=== PATIENT | female | born 1945 | race Caucasian/White ===

== ENCOUNTER 2021-02-12 12:27 | Inpatient (IN) | payer MEDICARE, OTHER ==
[2021-02-12] MEDS ORDERED: TYLENOL EXTRA STRENGTH 500 MG PO PRN (13:26)
--- NOTE | 2021-02-12 14:11 | ERPHSYRPT ---
- History of Present Illness Time Seen by Provider: 02/12/21 12:35 Source: patient Exam Limitations: no limitations Patient Subjective Stated Complaint: Fall Triage Nursing Assessment: .... Physician History: 75 years old female presented in the ER with chief complaint of right knee/leg/ankle pain after she lost her balance while taking care of her 3 days ago and twisted, was having difficulty getting up until EMS helped her get up. Her is COVID-19 positive. Patient noticed she is having increased difficulty ambulation and using cane but prior to arrival her right knee/leg gave away while she was walking. Did not hit her head, no loss of consciousness. Patient is also having a fever of 100.6 with minimal nonproductive cough and denies any shortness of breath although her oxygen saturation is around 89/90% on room air. Denies any chest pain, abdominal pain, nausea or vomiting but does feel weak fatigued and tired. Occurred: days ago (3) Reason for Fall: lost balance Injuries/Pain Location: lower extremity Loss of Consciousness: no loss of consciousness Quality: sharpness Severity of Pain-Max: moderate Severity of Pain-Current: moderate Modifying Factors: Improves With: immobilization. Worsens With: movement Associated Symptoms (Fall): extremity injury, trouble walking, No shortness of breath Allergies/Adverse Reactions: No Known Drug Allergies Allergy (Unverified 02/12/21 12:43) Home Medications: Diclofenac Sodium Gel [Voltaren GEL] 100 gm TP DAILY PRN 02/12/21 [History] NIFEdipine [Nifedipine ER] 60 mg PO DAILY 02/12/21 [History] Hx Influenza Vaccination/Date Given: No Hx Pneumococcal Vaccination/Date Given: No Immunizations Up to Date: Yes Travel Risk - International Travel Have you traveled outside of the country in past 3 weeks: No - Coronavirus Screening Are you exhibiting any of the following symptoms?: Yes Symptoms: Fever, Cough: New Onset Close contact with a COVID-19 positive Pt in past 14-21 Days: Yes - Vaccine Status Have you recieved a Covid-19 vaccination: No - Review of Systems Constitutional: Fatigue, Weakness Eyes: No Symptoms Ears, Nose, & Throat: No Symptoms Respiratory: Cough, Dyspnea Cardiac: No Symptoms Abdominal/Gastrointestinal: No Symptoms Genitourinary Symptoms: No Symptoms Musculoskeletal: Fall, Injury, Joint Pain, Myalgias Skin: No Symptoms Neurological: No Symptoms Psychological: No Symptoms Endocrine: No Symptoms Hematologic/Lymphatic: No Symptoms Immunological/Allergic: No Symptoms - Past Medical History Pertinent Past Medical History: Yes Neurological History: No Pertinent History ENT History: No Pertinent History Cardiac History: Hypertension Respiratory History: No Pertinent History Endocrine Medical History: No Pertinent History Musculoskeletal History: No Pertinent History GI Medical History: No Pertinent History History: No Pertinent History Psycho-Social History: No Pertinent History Female Reproductive Disorders: No Pertinent History - Past Surgical History Past Surgical History: Yes Neuro Surgical History: No Pertinent History Cardiac: No Pertinent History Respiratory: No Pertinent History Gastrointestinal: No Pertinent History Genitourinary: No Pertinent History Musculoskeletal: Orthopedic Surgery Female Surgical History: Mastectomy Other Surgical History: right wrist surgery 4 years ago. breast cancer right breast - Social History Smoking Status: Never smoker Exposure to second hand smoke: No Drug Use: none Patient Lives Alone: Yes - Female History Hx Now: No - Nursing Vital Signs Nursing Vital Signs: Initial Vital Signs Temperature 100.6 F 02/12/21 12:44 Pulse Rate 88 02/12/21 12:44 Respiratory Rate 18 02/12/21 12:44 Blood Pressure 155/55 02/12/21 12:44 O2 Sat by Pulse Oximetry 93 L 02/12/21 12:44 Pain Scale Pain Intensity 5 - Physical Exam General Appearance: no apparent distress, alert Head Injury: no evidence of injury Eye Exam: PERRL/EOMI, eyes nml inspection ENT Exam: airway nml, No evidence of ENT injury Neck Exam: supple, trachea midline, full range of motion, normal alignment, normal inspection Respiratory/Chest Exam: decreased breath sounds, rhonchi, No respiratory distress Cardiovascular Exam: normal heart sounds, regular rate/rhythm Gastrointestinal Exam: soft, normal bowel sounds, No tenderness Extremity Exam: contusions (Right lateral leg from knee to ankle with abrasion, swelling and minimal tenderness.) Neurologic Exam: alert, oriented x 3, cooperative, 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 nml as tested Skin Exam: normal color SpO2 Interpretation: normal SpO2: 93 O2 Delivery: Room Air Ordered Tests: Active Orders 24 hr Category Date Time Status Bedrest ROUTINE Activity 02/12/21 17:54 Active Up With Assistance ROUTINE Activity 02/12/21 17:54 Active Code Status Order ROUTINE Care 02/12/21 17:54 Active Fall Protocol Q1H Care 02/12/21 17:54 Active IV Care Q6H Care 02/12/21 17:54 Active Neuro Checks Q4H Care 02/12/21 17:[address] in Observation ROUTINE Care 02/12/21 17:54 Active [place] ROUTINE Care 02/12/21 17:54 Active Weight,Daily 0600 Care 02/12/21 17:54 Active ANKLE (3 VIEWS) Stat Exams 02/12/21 Completed CHEST 2 VIEWS (PA AND LAT) Stat Exams 02/12/21 Completed KNEE (3 VIEWS) Stat Exams 02/12/21 Completed BLOOD CULTURE Stat Lab 02/12/21 13:50 Received CBC W DIFF AM.LAB Lab 02/13/21 04:00 Ordered CBC W DIFF Stat Lab 02/12/21 14:10 Completed CMP AM.LAB Lab 02/13/21 04:00 Ordered CMP Stat Lab 02/12/21 14:10 Completed UA W/RFX UR CULTURE Stat Lab 02/12/21 13:23 Ordered Oxygen Nasal Cannula 3 lpm RT 02/12/21 17:54 Active Transfer Order Routine Transfer 02/12/21 Completed Medication Summary Generic Name Dose Route Start Last Admin Trade Name Freq PRN Reason Stop Dose Admin Acetaminophen 650 mg 02/12/21 17:54 Acetaminophen 325 Mg Tablet PO 03/14/21 17:53 Q4H PRN PRN PAIN AND/OR FEVER Dexamethasone Sodium Phosphate 6 mg 02/13/21 10:00 Dexamethasone Sod Phosphate 10 Mg/Ml IV 03/15/21 09:59 DAILY RENEE Remdesivir 100 mg/ Sodium 100 mls @ 100 mls/hr 02/13/21 16:41 Chloride IV 02/16/21 17:40 Q24H RENEE Ondansetron HCl 4 mg 02/12/21 18:13 Ondansetron Hcl 4 Mg/2 Ml Vial IV 03/14/21 18:12 Q6H PRN PRN NAUSEA/VOMITING Pantoprazole Sodium 40 mg 02/13/21 10:00 Pantoprazole 40 Mg Vial IV 03/15/21 09:59 Q24H10 RENEE Discontinued Medications Generic Name Dose Route Start Last Admin Trade Name Freq PRN Reason Stop Dose Admin Acetaminophen 1,000 mg 02/12/21 13:26 02/12/21 15:11 Acetaminophen 500 Mg Tablet PO 03/14/21 13:25 1,000 mg Q4H PRN PRN Administration HEADACHE Acetaminophen Confirm 02/12/21 15:08 Acetaminophen 500 Mg Tablet Administered 02/12/21 15:09 Dose 1,000 mg .ROUTE .STK-MED ONE Dexamethasone Sodium Phosphate 6 mg 02/12/21 15:01 02/12/21 15:13 Dexamethasone Sod Phosphate 10 Mg/Ml IV 02/12/21 15:02 6 mg STAT ONE Administration Dexamethasone Sodium Phosphate Confirm 02/12/21 15:08 Dexamethasone Sod Phosphate 10 Mg/Ml Administered 02/12/21 15:09 Dose 10 mg .ROUTE .STK-MED ONE Azithromycin 500 mg in 250 mls @ 250 mls/hr 02/12/21 15:00 02/12/21 15:54 Zithromax 500 Mg/ 250 Ml Nacl Premix IV 02/12/21 15:59 250 ml/hr STAT STA 250 mls/hr Administration Ceftriaxone Sodium/Dextrose 2 g in 50 mls @ 100 mls/hr 02/12/21 15:00 02/12/21 16:43 Rocephin 2 Gm-D5w 50ml Bag IV 02/12/21 15:29 Infused STAT STA Infusion Ceftriaxone Sodium/Dextrose Confirm 02/12/21 15:08 Rocephin 2 Gm-D5w 50ml Bag Administered 02/12/21 15:09 Dose 2 g in 50 mls @ ud IV .STK-MED ONE Azithromycin Confirm 02/12/21 15:51 Zithromax 500 Mg/ 250 Ml Nacl Premix Administered 02/12/21 15:52 Dose 500 mg in 250 mls @ ud IV .STK-MED ONE Remdesivir 200 mg/ Sodium 250 mls @ 125 mls/hr 02/12/21 16:37 Chloride IV 02/12/21 18:36 ONCE ONE Ceftriaxone Sodium/Dextrose 1 g in 50 mls @ 100 mls/hr 02/13/21 10:00 Rocephin 1 Gm-D5w 50 Ml Bag IV 02/16/21 09:59 Q24H10 RENEE Azithromycin 500 mg in 250 mls @ 250 mls/hr 02/13/21 10:00 Zithromax 500 Mg/ 250 Ml Nacl Premix IV 03/15/21 09:59 Q24H10 [facility] Lab/Rad Data: Laboratory Result Diagrams 02/12/21 14:10 02/12/21 14:10 Laboratory Results 02/12/21 02/12/21 02/12/21 Range/Units 15:40 14:10 14:10 WBC 2.8 L (4.0-10.5) K/mm3 RBC 4.85 (4.1-5.4) M/mm3 Hgb 14.1 (12.0-16.0) gm/dl Hct 44.0 (35-47) % MCV 90.7 (78-100) fl MCH 29.1 (26-32) pg MCHC 32.0 (32-36) g/dl RDW 13.4 (11.5-14.0) % Plt Count 120 L (150-450) K/mm3 MPV 10.7 (7.5-11.0) fl Gran % 84.1 H (36.0-66.0) % Eos # (Auto) 0 (0-0.5) Absolute Lymphs (auto) 0.30 L (1.0-4.6) Absolute Monos (auto) 0.15 (0.0-1.3) Lymphocytes % 10.6 L (24.0-44.0) % Monocytes % 5.3 (0.0-12.0) % Eosinophils % 0.0 (0.00-5.0) % Basophils % 0.0 (0.0-0.4) % Absolute Granulocytes 2.39 (1.4-6.9) Basophils # 0 (0-0.4) Sodium 128 L (137-145) mmol/L Potassium 3.7 (3.5-5.1) mmol/L Chloride 94 L (98-107) mmol/L Carbon Dioxide 27 (22-30) mmol/L Anion Gap 10.9 (5-15) MEQ/L BUN 10 (7-17) mg/dL Creatinine 0.86 (0.52-1.04) mg/dL Estimated GFR > 60.0 ML/MIN Glucose 111 H (74-106) mg/dL Calcium 8.2 L (8.4-10.2) mg/dL Total Bilirubin 0.50 (0.2-1.3) mg/dL AST 78 H (14-36) U/L ALT 38 H (0-35) U/L Alkaline Phosphatase 68 (38-126) U/L Serum Total Protein 6.8 (6.3-8.2) g/dL Albumin 4.0 (3.5-5.0) g/dL Influenza Type A Ag NEGATIVE (NEGATIVE) Influenza Type B Ag NEGATIVE (NEGATIVE) RSV (PCR) NEGATIVE (Negative) SARS-CoV-2 (PCR) POSITIVE A (NEGATIVE) Slides for Path Review YES - Progress Progress: improved, re-examined Progress Note: 02/12/21 16:41 Patient is evaluated for fall. Patient was found to have a temperature of 100.6 and was getting hypoxic around 88% on room air, placed on supplemental oxygen and is around 92%. X-rays negative for any fracture dislocation. Given Tylenol for fever. CBC consistent with Covid and chest x-ray showed bilateral airspace disease, given a dose of antibiotic remdesivir and Decadron. Discussed with Dr. Pena as patient Covid test is positive and patient is accepted for admission. Will see patient in: hospital (observation) Counseled pt/family regarding: lab results, diagnosis, need for follow-up, rad results - Departure Departure Disposition: Observation Clinical Impression: Pneumonia due to COVID-19 virus, Contusion of leg, Fall Respiratory failure Qualifiers: Chronicity: acute Respiratory failure complication: hypoxia Qualified Code(s): J96.01 - Acute respiratory failure with hypoxia Condition: Stable Critical Care Time: No
--- NOTE | 2021-02-12 14:16 | XRAY ---
Indication: Pain following fall. Comparison: None 3 view right knee demonstrates osteopenia and mild tricompartmental degenerative changes. No other bony, articular, or soft tissue abnormalities.
--- NOTE | 2021-02-12 14:16 | XRAY ---
Indication: Fever and cough. Comparison: None PA/lateral chest demonstrates COPD and minimal bibasilar interstitial alveolar opacities left greater than right. Heart not enlarged. Bony thorax intact with mild osteopenia and degenerative changes.
--- NOTE | 2021-02-12 14:16 | XRAY ---
Indication: Pain following fall. Comparison: None 3 view right ankle demonstrates osteopenia and small cuboid accessory ossicle. No other bony, articular, or soft tissue abnormalities.
[2021-02-12 14:24] LABS: Absolute Neutrophil Ct (ANC) 2.39 (1.4-6.9); Basophil (Absolute #) 0 (0-0.4); Eosinophil (Absolute #) 0 (0-0.5); Hemoglobin 14.1 gm/dl (12.0-16.0); Lymphocytes % 10.6 % (24.0-44.0); Mean Cell Volume 90.7 fl (78-100); Mean Corpuscular Hemoglobin 29.1 pg (26-32); Mean Platelet Volume 10.7 fl (7.5-11.0); Monocyte (Absolute #) 0.15 (0.0-1.3); Monocytes % 5.3 % (0.0-12.0); Neutrophil % 84.1 % (36.0-66.0); Platelet Count 120 K/mm3 (150-450); Red Blood Count 4.85 M/mm3 (4.1-5.4); Red Cell Distribution Width 13.4 % (11.5-14.0); White Blood Count 2.8 K/mm3 (4.0-10.5)
[2021-02-12 14:36] LABS: ALKALINE PHOSPHATASE 68 U/L (38-126); ANION GAP 10.9 MEQ/L (5-15); BLOOD UREA NITROGEN 10 mg/dL (7-17); CHLORIDE 94 mmol/L (98-107); Calcium 8.2 mg/dL (8.4-10.2); Carbon Dioxide 27 mmol/L (22-30); Creatinine 1 0.86 mg/dL (0.52-1.04); EST GLOMERULAR FILTRATION RATE > 60.0 ML/MIN; Glucose 111 mg/dL (74-106); Potassium 3.7 mmol/L (3.5-5.1); SGOT/AST 78 U/L (14-36); SGPT/ALT 38 U/L (0-35); SODIUM 128 mmol/L (137-145); Total Protein 6.8 g/dL (6.3-8.2)
[2021-02-12] MEDS ORDERED: ROCEPHIN 2 Gm-D5w 50ML BAG** 2 G/50 ML IVPB IV STA (15:00)
[2021-02-12] MEDS ORDERED: Zithromax 500 MG/ 250 ML NaCl Premix 500 MG/250 ML IVPB IV STA (15:00)
[2021-02-12] MEDS ORDERED: DECADRON 10MG INJ. IV ONE (15:01)
[2021-02-12] MEDS ORDERED: ROCEPHIN 2 Gm-D5w 50ML BAG** 2 G/50 ML IVPB IV ONE (15:08)
[2021-02-12] MEDS ORDERED: DECADRON 10MG INJ. ONE (15:08)
[2021-02-12] MEDS ORDERED: TYLENOL EXTRA STRENGTH 500 MG ONE (15:08)
[2021-02-12 15:50] LABS: Slide Review 1 YES
[2021-02-12] MEDS ORDERED: Zithromax 500 MG/ 250 ML NaCl Premix 500 MG/250 ML IVPB IV ONE (15:51)
[2021-02-12 16:31] LABS: INFLUENZA A NEGATIVE (NEGATIVE); INFLUENZA B NEGATIVE (NEGATIVE); RESPIRATORY SYNCTIAL VIRUS NEGATIVE (Negative)
[2021-02-12] MEDS ORDERED: REMDESIVIR 200 MG in Sodium Chloride 0.9% 250 ML 250 ML IV ONE (16:37)
[2021-02-12 16:43] LABS: SARS-CoV-2 Xpert Express POSITIVE (NEGATIVE)
[2021-02-12] MEDS ORDERED: Zofran 4 MG/2 ML VIAL IV PRN (18:13)
[2021-02-12] MEDS ORDERED: REMDESIVIR IV ONE (20:21)
[2021-02-12] MEDS ORDERED: Sodium Chloride 0.9% 250 ML 250 ML IV ONE (20:21)
[2021-02-12] MEDS ORDERED: Lomotil PO PRN (20:35)
[2021-02-12] MEDS ORDERED: Colace 100 MG PO PRN (20:37)
[2021-02-12 21:05] LABS: Appearance CLEAR (CLEAR); Bilirubin NEGATIVE (NEGATIVE); Blood NEGATIVE Ery/ul (0-5); Glucose NEGATIVE (NEGATIVE); Hyaline Casts 0-2 /LPF (0-2); Ketones SMALL (NEGATIVE); Leukocyte Esterase NEGATIVE (NEGATIVE); Mucus SLIGHT /HPF (NEGATIVE); Nitrite NEGATIVE (NEGATIVE); Protein,Urine Dip 30 (Negative); Urobilinogen NEGATIVE mg/dL (0-1); WBC 0-2 /HPF (0-5)
[2021-02-12] MEDS: ENOXAPARIN SODIUM SQ SCH (21:40)
[2021-02-12] MEDS ORDERED: Ativan 1 MG PO SCH (22:00)
[2021-02-12] MEDS ORDERED: Protonix 40MG Tablet PO SCH (22:00)
[2021-02-13 06:55] LABS: Absolute Neutrophil Ct (ANC) 1.76 (1.4-6.9); BASOPHIL % 0.4 % (0.0-0.4); Basophil (Absolute #) 0.01 (0-0.4); Eosinophil (Absolute #) 0 (0-0.5); Hematocrit 41.9 % (35-47); Hemoglobin 13.3 gm/dl (12.0-16.0); Lymphocyte (Absolute #) 0.55 (1.0-4.6); Lymphocytes % 21.5 % (24.0-44.0); Mean Cell Volume 90.5 fl (78-100); Mean Corpuscular Hemoglobin 28.7 pg (26-32); Mean Corpuscular Hgb Concent. 31.7 g/dl (32-36); Mean Platelet Volume 11.2 fl (7.5-11.0); Monocyte (Absolute #) 0.24 (0.0-1.3); Monocytes % 9.4 % (0.0-12.0); Neutrophil % 68.7 % (36.0-66.0); Platelet Count 136 K/mm3 (150-450); Red Blood Count 4.63 M/mm3 (4.1-5.4); Red Cell Distribution Width 13.3 % (11.5-14.0); White Blood Count 2.6 K/mm3 (4.0-10.5)
[2021-02-13] MEDS ORDERED: Ativan 1 MG PO PRN (07:30)
[2021-02-13] MEDS ORDERED: Sodium Chloride 0.9% 10 ML FLUSH Syringe IV PRN (07:30)
[2021-02-13] MEDS: TYLENOL 325 MG PO PRN (07:41)
[2021-02-13 07:55] LABS: ALBUMIN 3.3 g/dL (3.5-5.0); ALKALINE PHOSPHATASE 63 U/L (38-126); ANION GAP 10.4 MEQ/L (5-15); BLOOD UREA NITROGEN 12 mg/dL (7-17); CHLORIDE 98 mmol/L (98-107); Calcium 8.1 mg/dL (8.4-10.2); Carbon Dioxide 28 mmol/L (22-30); Creatinine 1 0.73 mg/dL (0.52-1.04); EST GLOMERULAR FILTRATION RATE > 60.0 ML/MIN; Glucose 98 mg/dL (74-106); Potassium 4.2 mmol/L (3.5-5.1); SGOT/AST 67 U/L (14-36); SGPT/ALT 35 U/L (0-35); SODIUM 132 mmol/L (137-145); Total Protein 5.6 g/dL (6.3-8.2)
[2021-02-13] MEDS ORDERED: Voltaren GEL TP PRN (08:13)
[2021-02-13] MEDS: Adalat CC 30 MG TABLET PO SCH (09:22)
[2021-02-13] MEDS: DECADRON 10MG INJ. IV SCH (09:23)
[2021-02-13] MEDS: Protonix 40MG Tablet PO SCH (09:23)
[2021-02-13] MEDS ORDERED: PROTONIX 40 MG IV IV SCH (10:00)
[2021-02-13] MEDS ORDERED: ROCEPHIN 1 Gm-D5w 50 ml Bag** 1 G/50 ML IVPB IV SCH (10:00)
[2021-02-13] MEDS ORDERED: NON-FORMULARY ITEM (Nifedipine [Nifedipine Er] 60 MG Tab.Er.24) PO SCH (10:00)
[2021-02-13] MEDS ORDERED: Zithromax 500 MG/ 250 ML NaCl Premix 500 MG/250 ML IVPB IV SCH (10:00)
--- NOTE | 2021-02-13 11:06 | HP ---
CHIEF COMPLAINT: Weakness, sore right ankle after twisting it and cough. HISTORY OF PRESENT ILLNESS: She is a 75-year-old white female who takes care of her who has trouble getting out of bed and needs a walker to walk. He slipped and she fell and hit her ankle against the bed. She was brought in for evaluation. It was noted she had a cough, temperature and was weak. COVID test was positive. She had been feeling bad for three days. He was actually already admitted, I think, possibly to a senior living. Anyway he is positive and being treated at [facility]. Neither one of them had vaccines. Neither one of the smoke and mostly homebound. She had a temperature of 100.6F in the emergency room. Denied any shortness of breath. Her O2 saturation was like 89%. The fall actually occurred two days ago and she was having problems walking and finally had gotten her into a facility. She had no loss of consciousness. The pain is pretty moderate. X-rays were negative. TRAVEL RISK: None. CORONAVIRUS SCREENING: Vaccinations: Basically none. MEDICATIONS: Voltaren gel to the knees, Nifedipine extended release 60 mg q.d., ALLERGIES: NKDA. PAST MEDICAL HISTORY: Arthritis of the knees. Mild hypotension. No heart attacks. No strokes. PAST SURGICAL HISTORY: She had a mastectomy many years ago. Right wrist surgery four years ago for fracture. REVIEW OF SYSTEMS: CONSTITUTIONAL: She is weak, tired, feels like she is feverish at times. HEENT: The patient is hard of hearing but she can hear normal conversation that is directed to her without interference. ABDOMEN: No nausea or vomiting. EXTREMITIES: Sore right ankle usually no problems. SOCIAL HISTORY: Nonsmoker. She is to a [employer] who served in [facility]. He has some dementia and as stated he is in a senior living now. PHYSICAL EXAMINATION: VITAL SIGNS: In the emergency room temperature 100.6F, pulse 88, respirations 18, blood pressure 155/55. O2 saturation pulse ox with 2 liters was 93%. Pain intensity is 5. GENERAL APPEARANCE: The patient is a fairly strong, mentally alert, 75-year-old white female. HEENT: Pupils equal and reactive to light. Decreased hearing. NECK: Supple without adenopathy. CHEST: Clear. CVS: No murmurs or gallops. ABDOMEN: Soft. No masses or organomegaly. EXTREMITIES: Right lower leg is swollen from the ankle to the knee with abrasion, minimal tenderness. LAB DATA AND TESTS: IMPRESSION: The patient has: 1) Early COVID pneumonia shown by chest x-ray and falling O2's and weakness. 2) She has a sprain right ankle. 3) Hypertension. 4) Loss of companionship recently. PLAN: The patient will be treated with the usual medicines including Remdesivir, Dexamethasone. She is on antibiotics that will be discontinued as she has no signs of any bacterial infection. Her white count is low 2.8 as expected. Her sodium is 128 slightly low once again from fluid overload probably from her COVID. She will be placed on oxygen and followed on a daily basis. PROGNOSIS: Good.
[2021-02-13] MEDS: Lomotil PO PRN (11:32)
[2021-02-13] MEDS: Sodium Chloride 0.9% 10 ML FLUSH Syringe IV SCH ×2 (14:36→22:08)
[2021-02-13] MEDS: REMDESIVIR 100 MG in Sodium Chloride 0.9% 100 ML BAG 100 ML IV SCH (17:40)
[2021-02-13] MEDS: ENOXAPARIN SODIUM SQ SCH (22:07)
[2021-02-14] MEDS: Protonix 40MG Tablet PO SCH (09:23)
[2021-02-14] MEDS: DECADRON 10MG INJ. IV SCH (09:23)
[2021-02-14] MEDS: Sodium Chloride 0.9% 10 ML FLUSH Syringe IV SCH ×3 (09:23→21:54)
[2021-02-14] MEDS: Adalat CC 30 MG TABLET PO SCH (09:23)
[2021-02-14] MEDS: Lomotil PO PRN (09:26)
[2021-02-14] MEDS: TYLENOL 325 MG PO PRN (12:19)
[2021-02-14] MEDS: REMDESIVIR 100 MG in Sodium Chloride 0.9% 100 ML BAG 100 ML IV SCH (17:16)
[2021-02-14] MEDS: ENOXAPARIN SODIUM SQ SCH (21:54)
[2021-02-15] MEDS: Sodium Chloride 0.9% 10 ML FLUSH Syringe IV SCH ×3 (06:13→21:43)
[2021-02-15 06:55] LABS: Hematocrit 43.6 % (35-47); Hemoglobin 13.9 gm/dl (12.0-16.0); Mean Cell Volume 90.5 fl (78-100); Mean Corpuscular Hemoglobin 28.8 pg (26-32); Mean Corpuscular Hgb Concent. 31.9 g/dl (32-36); Mean Platelet Volume 10.7 fl (7.5-11.0); Platelet Count 187 K/mm3 (150-450); Red Blood Count 4.82 M/mm3 (4.1-5.4); Red Cell Distribution Width 13.3 % (11.5-14.0); White Blood Count 4.7 K/mm3 (4.0-10.5)
[2021-02-15 07:05] LABS: ALBUMIN 3.5 g/dL (3.5-5.0); ALKALINE PHOSPHATASE 69 U/L (38-126); ANION GAP 11.6 MEQ/L (5-15); BLOOD UREA NITROGEN 19 mg/dL (7-17); CHLORIDE 99 mmol/L (98-107); Calcium 8.4 mg/dL (8.4-10.2); Carbon Dioxide 28 mmol/L (22-30); Creatinine 1 0.75 mg/dL (0.52-1.04); EST GLOMERULAR FILTRATION RATE > 60.0 ML/MIN; Glucose 105 mg/dL (74-106); Potassium 3.5 mmol/L (3.5-5.1); SGOT/AST 54 U/L (14-36); SGPT/ALT 33 U/L (0-35); SODIUM 135 mmol/L (137-145); Total Protein 6.1 g/dL (6.3-8.2)
[2021-02-15] MEDS: Protonix 40MG Tablet PO SCH (07:22)
[2021-02-15] MEDS: DECADRON 10MG INJ. IV SCH (07:22)
[2021-02-15] MEDS: Lomotil PO PRN (07:22)
[2021-02-15] MEDS: Adalat CC 30 MG TABLET PO SCH (07:23)
--- NOTE | 2021-02-15 07:59 | XRAY ---
Indication: Covid 19 pneumonia. Comparison: February 22, 2021. Portable chest again hyperinflated with worsening more diffuse bilateral interstitial alveolar opacities without consolidation/large effusion. Heart is now borderline enlarged.
[2021-02-15 09:15] LABS: Slide Review YES
[2021-02-15] MEDS ORDERED: VENTOLIN COMMON CANISTER IH PRN (14:51)
[2021-02-15] MEDS: REMDESIVIR 100 MG in Sodium Chloride 0.9% 100 ML BAG 100 ML IV SCH (16:07)
[2021-02-15] MEDS: TYLENOL 325 MG PO PRN (18:29)
[2021-02-15] MEDS: ENOXAPARIN SODIUM SQ SCH (21:36)
[2021-02-16] MEDS: Sodium Chloride 0.9% 10 ML FLUSH Syringe IV SCH ×4 (04:58→20:38)
[2021-02-16] MEDS: Protonix 40MG Tablet PO SCH (08:53)
[2021-02-16] MEDS: DECADRON 10MG INJ. IV SCH (08:53)
[2021-02-16] MEDS: Adalat CC 30 MG TABLET PO SCH (08:54)
[2021-02-16] MEDS ORDERED: Sodium Chloride 0.9% 1000 ML 1,000 ML ONE (11:42)
[2021-02-16] MEDS: Sodium Chloride 0.9% 1000 ML 1,000 ML IV SCH (11:46)
[2021-02-16 11:54] LABS: Hematocrit 40.9 % (35-47); Hemoglobin 13.2 gm/dl (12.0-16.0); Mean Cell Volume 90.1 fl (78-100); Mean Corpuscular Hemoglobin 29.1 pg (26-32); Mean Corpuscular Hgb Concent. 32.3 g/dl (32-36); Mean Platelet Volume 10.5 fl (7.5-11.0); Platelet Count 225 K/mm3 (150-450); Red Blood Count 4.54 M/mm3 (4.1-5.4); Red Cell Distribution Width 13.1 % (11.5-14.0)
[2021-02-16 12:11] LABS: BLOOD UREA NITROGEN 18 mg/dL (7-17); CHLORIDE 98 mmol/L (98-107); Calcium 8.1 mg/dL (8.4-10.2); Carbon Dioxide 29 mmol/L (22-30); Creatinine 1 0.69 mg/dL (0.52-1.04); EST GLOMERULAR FILTRATION RATE > 60.0 ML/MIN; Glucose 136 mg/dL (74-106); NT PRO BNP 267 pg/mL (0-1800); Potassium 3.2 mmol/L (3.5-5.1); SODIUM 133 mmol/L (137-145)
[2021-02-16] MEDS ORDERED: HYDROCODONE-CHLORPHEN ER SUSP PO PRN (13:02)
[2021-02-16] MEDS: VENTOLIN COMMON CANISTER IH SCH ×2 (14:12→21:25)
[2021-02-16] MEDS: OLUMIANT PO SCH (14:20)
[2021-02-16] MEDS: REMDESIVIR 100 MG in Sodium Chloride 0.9% 100 ML BAG 100 ML IV SCH (17:51)
--- NOTE | 2021-02-16 18:49 | XRAY ---
Indication: Covid 19 pneumonia. Comparison: One day earlier. Portable chest remains unchanged again hyperinflated with moderate diffuse bilateral patchy airspace disease. Heart remains borderline enlarged. No new cardiopulmonary abnormalities. Comment: Preliminary interpretation made by C. No critical discrepancy.
[2021-02-16] MEDS: ENOXAPARIN SODIUM SQ SCH (20:36)
[2021-02-17] MEDS: VENTOLIN COMMON CANISTER IH SCH ×5 (01:31→11:00)
[2021-02-17 06:25] LABS: Hematocrit 48.3 % (35-47); Hemoglobin 15.4 gm/dl (12.0-16.0); Mean Cell Volume 90.1 fl (78-100); Mean Corpuscular Hemoglobin 28.7 pg (26-32); Mean Corpuscular Hgb Concent. 31.9 g/dl (32-36); Mean Platelet Volume 10.1 fl (7.5-11.0); Platelet Count 302 K/mm3 (150-450); Red Blood Count 5.36 M/mm3 (4.1-5.4); Red Cell Distribution Width 13.3 % (11.5-14.0)
[2021-02-17 07:11] LABS: ALBUMIN 3.8 g/dL (3.5-5.0); ALKALINE PHOSPHATASE 78 U/L (38-126); ANION GAP 14.6 MEQ/L (5-15); BLOOD UREA NITROGEN 13 mg/dL (7-17); CHLORIDE 98 mmol/L (98-107); Calcium 8.5 mg/dL (8.4-10.2); Carbon Dioxide 28 mmol/L (22-30); Creatinine 1 0.63 mg/dL (0.52-1.04); EST GLOMERULAR FILTRATION RATE > 60.0 ML/MIN; Glucose 94 mg/dL (74-106); NT PRO BNP 390 pg/mL (0-1800); Potassium 3.5 mmol/L (3.5-5.1); SGOT/AST 62 U/L (14-36); SGPT/ALT 39 U/L (0-35); SODIUM 137 mmol/L (137-145); Total Protein 6.5 g/dL (6.3-8.2)
[2021-02-17] MEDS: Sodium Chloride 0.9% 10 ML FLUSH Syringe IV SCH ×3 (09:09→21:37)
[2021-02-17] MEDS: Protonix 40MG Tablet PO SCH (09:29)
[2021-02-17] MEDS: OLUMIANT PO SCH (09:29)
[2021-02-17] MEDS: DECADRON 10MG INJ. IV SCH (09:29)
[2021-02-17] MEDS: Adalat CC 30 MG TABLET PO SCH (09:29)
[2021-02-17] MEDS ORDERED: VENTOLIN COMMON CANISTER IH PRN (12:09)
[2021-02-17] MEDS: Sodium Chloride 0.9% 1000 ML 1,000 ML IV SCH (14:34)
[2021-02-17] MEDS: ENOXAPARIN SODIUM SQ SCH (21:22)
[2021-02-18] MEDS: Sodium Chloride 0.9% 10 ML FLUSH Syringe IV SCH ×2 (06:21→14:05)
[2021-02-18 09:07] LABS: Hematocrit 48.9 % (35-47); Hemoglobin 15.6 gm/dl (12.0-16.0); Mean Cell Volume 90.9 fl (78-100); Mean Corpuscular Hgb Concent. 31.9 g/dl (32-36); Mean Platelet Volume 10.8 fl (7.5-11.0); Platelet Count 328 K/mm3 (150-450); Red Blood Count 5.38 M/mm3 (4.1-5.4); Red Cell Distribution Width 13.5 % (11.5-14.0); White Blood Count 13.7 K/mm3 (4.0-10.5)
[2021-02-18 10:17] LABS: ALBUMIN 3.8 g/dL (3.5-5.0); ALKALINE PHOSPHATASE 76 U/L (38-126); ANION GAP 14.6 MEQ/L (5-15); BLOOD UREA NITROGEN 18 mg/dL (7-17); CHLORIDE 100 mmol/L (98-107); Calcium 8.9 mg/dL (8.4-10.2); Carbon Dioxide 27 mmol/L (22-30); Creatinine 1 0.68 mg/dL (0.52-1.04); EST GLOMERULAR FILTRATION RATE > 60.0 ML/MIN; Glucose 103 mg/dL (74-106); Potassium 3.7 mmol/L (3.5-5.1); SGOT/AST 63 U/L (14-36); SGPT/ALT 39 U/L (0-35); SODIUM 138 mmol/L (137-145); Total Protein 6.8 g/dL (6.3-8.2)
[2021-02-18] MEDS: DECADRON 10MG INJ. IV SCH (10:39)
[2021-02-18] MEDS: OLUMIANT PO SCH (10:39)
[2021-02-18] MEDS: Protonix 40MG Tablet PO SCH (10:39)
[2021-02-18] MEDS: Adalat CC 30 MG TABLET PO SCH (10:40)
[2021-02-19] MEDS: ENOXAPARIN SODIUM SQ SCH ×2 (00:28→22:03)
[2021-02-19] MEDS: Sodium Chloride 0.9% 10 ML FLUSH Syringe IV SCH ×2 (01:26→21:04)
[2021-02-19 06:34] LABS: Hematocrit 43.3 % (35-47); Hemoglobin 13.8 gm/dl (12.0-16.0); Mean Cell Volume 91.2 fl (78-100); Mean Corpuscular Hemoglobin 29.1 pg (26-32); Mean Corpuscular Hgb Concent. 31.9 g/dl (32-36); Mean Platelet Volume 10.1 fl (7.5-11.0); Platelet Count 341 K/mm3 (150-450); Red Blood Count 4.75 M/mm3 (4.1-5.4); Red Cell Distribution Width 13.4 % (11.5-14.0); White Blood Count 7.4 K/mm3 (4.0-10.5)
[2021-02-19 06:56] LABS: ALBUMIN 3.2 g/dL (3.5-5.0); ALKALINE PHOSPHATASE 66 U/L (38-126); ANION GAP 9.7 MEQ/L (5-15); BLOOD UREA NITROGEN 18 mg/dL (7-17); CHLORIDE 103 mmol/L (98-107); Calcium 8.5 mg/dL (8.4-10.2); Carbon Dioxide 29 mmol/L (22-30); Creatinine 1 0.69 mg/dL (0.52-1.04); EST GLOMERULAR FILTRATION RATE > 60.0 ML/MIN; Glucose 91 mg/dL (74-106); Potassium 3.7 mmol/L (3.5-5.1); SGOT/AST 35 U/L (14-36); SGPT/ALT 34 U/L (0-35); SODIUM 138 mmol/L (137-145); Total Protein 5.8 g/dL (6.3-8.2)
--- NOTE | 2021-02-19 08:44 | XRAY ---
Indication: Covid 19 pneumonia. Comparison: February 16, 2021. Portable chest grossly unchanged again demonstrating diffuse bilateral airspace disease and borderline cardiomegaly. No new cardiopulmonary abnormalities.
[2021-02-19] MEDS: Adalat CC 30 MG TABLET PO SCH (10:57)
[2021-02-19] MEDS: OLUMIANT PO SCH (10:57)
[2021-02-19] MEDS: Protonix 40MG Tablet PO SCH (10:57)
[2021-02-19] MEDS: DECADRON 10MG INJ. IV SCH (10:57)
[2021-02-20 06:07] LABS: Hematocrit 42.2 % (35-47); Hemoglobin 13.3 gm/dl (12.0-16.0); Mean Cell Volume 90.8 fl (78-100); Mean Corpuscular Hemoglobin 28.6 pg (26-32); Mean Corpuscular Hgb Concent. 31.5 g/dl (32-36); Mean Platelet Volume 9.6 fl (7.5-11.0); Platelet Count 338 K/mm3 (150-450); Red Blood Count 4.65 M/mm3 (4.1-5.4); Red Cell Distribution Width 13.2 % (11.5-14.0); White Blood Count 6.6 K/mm3 (4.0-10.5)
[2021-02-20] MEDS: Sodium Chloride 0.9% 10 ML FLUSH Syringe IV SCH ×3 (06:10→21:13)
[2021-02-20 06:47] LABS: ALBUMIN 3.1 g/dL (3.5-5.0); ALKALINE PHOSPHATASE 64 U/L (38-126); ANION GAP 7.2 MEQ/L (5-15); BLOOD UREA NITROGEN 18 mg/dL (7-17); CHLORIDE 101 mmol/L (98-107); Calcium 8.5 mg/dL (8.4-10.2); Carbon Dioxide 31 mmol/L (22-30); Creatinine 1 0.59 mg/dL (0.52-1.04); EST GLOMERULAR FILTRATION RATE > 60.0 ML/MIN; Glucose 106 mg/dL (74-106); Potassium 3.8 mmol/L (3.5-5.1); SGOT/AST 34 U/L (14-36); SGPT/ALT 34 U/L (0-35); SODIUM 135 mmol/L (137-145); Total Protein 5.8 g/dL (6.3-8.2)
[2021-02-20] MEDS: OLUMIANT PO SCH (09:25)
[2021-02-20] MEDS: Protonix 40MG Tablet PO SCH (09:27)
[2021-02-20] MEDS: DECADRON 10MG INJ. IV SCH (09:27)
[2021-02-20] MEDS: Adalat CC 30 MG TABLET PO SCH (09:28)
[2021-02-20] MEDS: Sodium Chloride 0.9% 1000 ML 1,000 ML IV SCH ×2 (20:39→20:40)
[2021-02-20] MEDS: ENOXAPARIN SODIUM SQ SCH (21:10)
[2021-02-21 06:41] LABS: Hemoglobin 12.8 gm/dl (12.0-16.0); Mean Cell Volume 91.5 fl (78-100); Mean Corpuscular Hemoglobin 29.3 pg (26-32); Mean Platelet Volume 9.9 fl (7.5-11.0); Platelet Count 364 K/mm3 (150-450); Red Blood Count 4.37 M/mm3 (4.1-5.4); Red Cell Distribution Width 13.1 % (11.5-14.0); White Blood Count 6.5 K/mm3 (4.0-10.5)
[2021-02-21 07:03] LABS: ALBUMIN 3.1 g/dL (3.5-5.0); ALKALINE PHOSPHATASE 65 U/L (38-126); ANION GAP 8.2 MEQ/L (5-15); BLOOD UREA NITROGEN 16 mg/dL (7-17); CHLORIDE 100 mmol/L (98-107); Calcium 8.4 mg/dL (8.4-10.2); Carbon Dioxide 29 mmol/L (22-30); Creatinine 1 0.67 mg/dL (0.52-1.04); EST GLOMERULAR FILTRATION RATE > 60.0 ML/MIN; Glucose 99 mg/dL (74-106); Potassium 3.9 mmol/L (3.5-5.1); SGOT/AST 38 U/L (14-36); SGPT/ALT 32 U/L (0-35); SODIUM 134 mmol/L (137-145); Total Protein 5.8 g/dL (6.3-8.2)
[2021-02-21 08:56] VITALS: BP 155/80
[2021-02-21 10:36] VITALS: O2SAT 92
[2021-02-21 12:49] VITALS: PULSE 97
== END 2021-02-21 13:00 | disposition home health service (06) | DRG 177 ==
LOC: ED 12:27 → MED SURG 17:52 → OBSVTOIN 02-13 10:47
PROVIDERS: ADMIT Family Medicine; ATTEND Family Medicine
DX: U07.1 COVID-19 (principal); J12.82 Pneumonia due to coronavirus disease 2019; J96.01 Acute respiratory failure with hypoxia; I10 Essential (primary) hypertension; W18.30XA Fall on same level, unspecified, initial encounter; S80.11XA Contusion of right lower leg, initial encounter; S93.401A Sprain of unspecified ligament of right ankle, initial encounter; Z79.899 Other long term (current) drug therapy; Z20.828 Contact with and (suspected) exposure to other viral communicable diseases
CPT/HCPCS: 0241U; 36000; 36415; 71045; 71046; 73562; 73610; 80048; 80053; 81001; 83880; 85025; 85027; 85379; 93268; 94640; 94762; 96365; 96374; 99285; G0378; 87040; J0456; J0696; J1100; J1650; J2405; A9270-GY